=== PATIENT | male | born 1995 | race American Indian/Alaskan Native ===

== ENCOUNTER 2021-01-09 00:32 | Emergency (ER) | payer SELFPAY ==
[2021-01-09 00:54] VITALS: BP 126/85
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
== END 2021-01-09 05:13 | disposition home or self-care (01) ==
LOC: ED 00:32
DX: S52.692A Other fracture of lower end of left ulna, initial encounter for closed fracture (principal); Z72.89 Other problems related to lifestyle; Z79.899 Other long term (current) drug therapy; V49.9XXA Car occupant (driver) (passenger) injured in unspecified traffic accident, initial encounter; Y93.89 Activity, other specified; Y92.488 Other paved roadways as the place of occurrence of the external cause; Y99.8 Other external cause status
CPT/HCPCS: 99283

== ENCOUNTER 2022-05-21 09:24 | Emergency (ER) | payer SELFPAY ==
[2022-05-21 09:44] VITALS: BP 142/90
--- NOTE | 2022-05-21 09:44 | Emergency Department Report ---
ED Headache HPI - General Chief Complaint: Headache Stated Complaint: HEADACHE Time Seen by Provider: 05/21/22 09:43 - History of Present Illness Allergies/Adverse Reactions: Allergies No Known Allergies Allergy (Unverified 01/09/21 00:55) Home Medications: Ambulatory Orders Butalb/Acetaminophen/Caffeine [Fioricet 50-300-40 mg CAP] 1 cap PO Q8HR PRN #10 cap 05/21/22 ED Review of Systems ROS: Stated complaint: HEADACHE Other details as noted in HPI Comment: All other systems reviewed and negative ED Past Medical Hx - Past Medical History Previous Medical History?: No - Surgical History Past Surgical History?: No - Family History Family history: no significant - Social History Smoking Status: Never Smoker Substance Use Type: Alcohol - Medications Home Medications: Home Medications Medication Instructions Recorded Confirmed Last Taken Type Butalb/Acetaminophen/Caffeine 1 cap PO Q8HR PRN #10 cap 05/21/22 Unknown Rx [Fioricet 50-300-40 mg CAP] ED Physical Exam - General Limitations: No Limitations General appearance: alert, in no apparent distress - Head Head exam: Present: atraumatic, normocephalic - Eye Eye exam: Present: normal appearance - ENT ENT exam: Present: mucous membranes moist - Neck Neck exam: Present: normal inspection - Respiratory Respiratory exam: Present: normal lung sounds bilaterally. Absent: respiratory distress - Cardiovascular Cardiovascular Exam: Present: regular rate, normal rhythm. Absent: systolic murmur, diastolic murmur, rubs, gallop - GI/Abdominal GI/Abdominal exam: Present: soft, normal bowel sounds - Rectal Rectal exam: Present: deferred - Extremities Exam Extremities exam: Present: normal inspection - Back Exam Back exam: Present: normal inspection - Neurological Exam Neurological exam: Present: alert, oriented X3 - Psychiatric Psychiatric exam: Present: normal affect, normal mood - Skin Skin exam: Present: warm, dry, intact, normal color. Absent: rash ED Course Vital Signs 05/21/22 09:42 Temperature 98.6 F Pulse Rate 60 Respiratory 16 Rate Blood Pressure 142/90 [Left] O2 Sat by Pulse 100 Oximetry Critical care attestation.: If time is entered above; I have spent that time in minutes in the direct care of this critically ill patient, excluding procedure time. ED Disposition Clinical Impression: Headache Disposition: 01 HOME / SELF CARE / HOMELESS Is pt being admited?: No Does the pt Need Aspirin: No Condition: Stable Additional Instructions: MEDS ORDERED TODAY FOLLOW UP WITH PCP AND OR NEUROLOGY WE DISCUSSED REFERRAL BELOW STAY WELL HYDRATED WITH WATER Referrals: PRIMARY CARE, [Primary Care Provider] - 3-5 Days NESTOR KILPATRICK MD [Staff Physician] - 3-5 Days AUBRIE RESENDIZ MD [Staff Physician] - 3-5 Days Forms: Work/School Release Form(ED) Time of Disposition: 09:44
[2022-05-21] MEDS ORDERED: BUTALB/ACETAMINOPHEN/CAFFEINE TAB PO ONE (09:50)
[2022-05-21] MEDS ORDERED: dexAMETHasone 4 MG/ML VIAL IM ONE (09:50)
[2022-05-21] MEDS ORDERED: ONDANSETRON 4 MG ODT TAB PO ONE (09:50)
== END 2022-05-21 11:42 | disposition home or self-care (01) ==
LOC: ED 09:24
DX: R51.9 Headache, unspecified (principal); Z72.89 Other problems related to lifestyle; Z79.899 Other long term (current) drug therapy
CPT/HCPCS: 96372; 99282; J1100; J3490; Q0162